=== PATIENT | female | born 1980 | race Two or more races ===

== ENCOUNTER 2024-12-31 12:49 | Emergency (ER) | payer MEDICAID, OTHER ==
[~2024-12-31] VITALS: Ht 152.4 cm; Wt 63.7 kg
[2024-12-31 12:55] VITALS: BP 128/78; PULSE 101; RESP 16; TEMP 98; O2SAT 98
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
[2024-12-31] MEDS: ACETAMINOPHEN 500 MG TAB or CAP PO ONE (13:44)
[2024-12-31] MEDS ORDERED: METH-1181 PO (14:13)
[2024-12-31] MEDS ORDERED: IBUP-1454 PO (14:13)
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
== END 2024-12-31 14:19 | disposition home or self-care (01) ==
LOC: ER 12:49 → EDBD 12:49 → ER 14:19
DX: S16.1XXA Strain of muscle, fascia and tendon at neck level, initial encounter (principal); V43.62XA Car passenger injured in collision with other type car in traffic accident, initial encounter; Y93.89 Activity, other specified; Y92.488 Other paved roadways as the place of occurrence of the external cause; Y99.8 Other external cause status
CPT/HCPCS: 72040